=== PATIENT | female | born 1980 | race Caucasian/White ===

== ENCOUNTER 2017-07-26 01:21 | Emergency (ER) | payer OTHER ==
[~2017-07-26] VITALS: Ht 175.3 cm; Wt 116.3 kg
[2017-07-26] MEDS ORDERED: ONDANSETRON ODT 4 MG ONE (01:49)
[2017-07-26] MEDS ORDERED: ONDANSETRON ODT 4 MG PO ONE (02:00)
[2017-07-26 02:07] LABS: HCG UR SG 1.022 (1.003-1.030)
[2017-07-26 02:08] LABS: CULTURE INDICATED? YES; MICROSCOPIC INDICATED
[2017-07-26 02:52] VITALS: BP 133/79
[2017-07-26] MEDS ORDERED: ONDANSETRON 2MG/ML, 2ML ONE (02:54)
[2017-07-26 02:55] LABS: MEAN CORPUSCULAR HEMOGLOBIN 24.3 pg (27.0-34.8); MEAN CORPUSCULAR VOLUME 73.5 fL (80-100); MEAN PLATELET VOLUME 7.9 fL (7.4-10.4); PLATELET COUNT 411 x10^3/uL (130-400); RED BLOOD COUNT 5.72 x10^6/uL (3.82-5.3); RED CELL DISTRIBUTION WIDTH 15.2 % (9.6-15.2)
[2017-07-26] MEDS ORDERED: KETOROLAC 30 MG/1 ML ONE (02:59)
[2017-07-26] MEDS ORDERED: SODIUM CHLORIDE 0.9% 1,000ML IVBOLUS ONE (03:00)
[2017-07-26] MEDS ORDERED: KETOROLAC 30 MG/1 ML IVPush ONE (03:00)
[2017-07-26] MEDS ORDERED: ONDANSETRON 2MG/ML, 2ML IVPush ONE (03:00)
[2017-07-26 03:06] LABS: ALANINE AMINOTRANSFERASE 28 U/L (12-78); ALBUMIN 3.5 g/dL (3.4-5.0); ANION GAP 11 mmol/L (5-15); CALCIUM 8.6 mg/dL (8.5-10.1); CHLORIDE 107 mmol/L (98-107)
[2017-07-26 03:09] LABS: MD YES
[2017-07-26 03:10] LABS: <RBC MORPHOLOGY> NORMAL; BAND#(MANUAL) 1.43 x10^3/uL; BANDS%(MANUAL) 7 % (0-7); BASOS#(MANUAL) 0.41 x10^3/uL (0-0.1); BASOS% (MANUAL) 2 % (0-1); EOS% (MANUAL) 1 % (1-7); LYMPH#(MANUAL) 1.43 x10^3/uL (1-3.4); LYMPHS% (MANUAL) 7 % (22-44); MONOS#(MANUAL) 0.61 x10^3/uL (0.3-2.7); MONOS% (MANUAL) 3 % (2-9); SEG#(MANUAL) 16.32 x10^3/uL (1.8-6.8); SEGS% (MANUAL) 80 % (42-75)
[2017-07-26 03:11] LABS: <PLATELET ESTIMATE> ADEQUATE; <PLT MORPHOLOGY> NORMAL PLT MORPH; ALKALINE PHOSPHATASE 82 U/L (45-117); BILIRUBIN,TOTAL 0.4 mg/dL (0.2-1.0); CREATININE 0.77 mg/dL (0.55-1.02); TOTAL PROTEIN 7.8 g/dL (6.4-8.2)
== END 2017-07-26 04:02 | disposition home or self-care (01) ==
LOC: ED 03:45
DX: A09 Infectious gastroenteritis and colitis, unspecified (principal)
CPT/HCPCS: 36415; 80053; 81001; 81025; 83690; 84703; 85025; 87086; 96374; 96375; 99284; J1885; J2405; J7030; Q0162